=== PATIENT | female | born 1930 | race Caucasian/White ===

== ENCOUNTER 2018-02-14 05:36 | Emergency (ER) | payer MEDICARE, OTHER ==
[~2018-02-14 05:36] MED LIST: ADULT LOW DOSE81 MG PO; ALPRAZOLAM0.25 MG PO; DYAZIDE 25 MG-31 CAP PO; DYAZIDE 37.5-21 EACH PO; GENTAMYCIN PO; LASIX20 M1 PO; NORCO 325 MG-51 TA1 PO; SYNTHROID0.125 MG/T PO; TYLENOL 500MG500 MG PO; XANAX0.5 MG PO; ZOLOFT25 M1 PO; ZOVIRAX 800MG800 M1 PO; [UNRECOGNIZED DRUG - OTHER]
[2018-02-14] MEDS ORDERED: HYDROCHLOROTH12.5 M2 PO (05:52)
[2018-02-14] MEDS ORDERED: ACYCLOVIR800 MG PO (05:53)
[2018-02-14] MEDS ORDERED: LATANOPROST 2.2.5 ML OU (05:53)
[2018-02-14] MEDS ORDERED: STOOL SOFTENER1 TAB PO (05:53)
[2018-02-14] MEDS ORDERED: CRANBERRY200 MG PO (05:54)
[2018-02-14] MEDS ORDERED: VITAMIN C100 M3 PO (05:54)
[2018-02-14] MEDS ORDERED: PREDNISOLONE AC10 ML OP (05:55)
[2018-02-14 06:34] LABS: HEMATOCRIT 46.2 % (37.0-47.0); HEMOGLOBIN 15.2 g/dL (12.5-16.0); MEAN CELL VOLUME 96 fl (78-100); MEAN CORPUSCULAR HEMOGLOBIN 32 pg (27-31); MEAN CORPUSCULAR HGB CONC 33 g/dL (33-37); MEAN PLATELET VOLUME 9.3 fl (7.4-10.4); PLATELET COUNT 460 K/mm3 (130-400); RED BLOOD COUNT 4.81 M/mm3 (4.10-5.30); RED CELL DISTRIBUTION WIDTH 14.9 % (11.5-14.5); WHITE BLOOD COUNT 15.3 K/mm3 (4.8-10.8)
[2018-02-14 06:43] LABS: ALBUMIN 3.7 g/dL (3.5-5.0); BUN/CREATININE RATIO 32.1 (6.0-26.0); CALCIUM 9.6 mg/dL (8.4-10.2); POTASSIUM 3.5 mmol/L (3.6-5.0); TOTAL BILIRUBIN 0.6 mg/dL (0.2-1.3); TOTAL PROTEIN 6.5 g/dL (6.3-8.2)
[2018-02-14 06:45] LABS: BAND 10 % (0-10); LYMPHOCYTE 2 % (20-51); MONOCYTE 6 % (3-10); NEUTROPHILS 82 % (42-75)
[2018-02-14 08:15] LABS: URINE APPEARANCE CLOUDY; URINE BILIRUBIN NEGATIVE (NEGATIVE); URINE BLOOD TRACE (NEGATIVE); URINE COLOR YELLOW; URINE GLUCOSE NEGATIVE (NEGATIVE); URINE KETONE NEGATIVE (NEGATIVE); URINE LEUKOCYTE ESTERASE NEGATIVE (NEGATIVE); URINE NITRATE NEGATIVE (NEGATIVE); URINE PROTEIN(semi-quant) 2+ mg/dL (NEGATIVE); URINE UROBILINOGEN 4 mg/dL (NORMAL); URINE WBC 0-1 /hpf (0-3)
[2018-02-14 13:32] VITALS: BP 116/77
[2018-02-16] MEDS ORDERED: MIRALAX17 GM PO (11:13)
== END 2018-02-14 13:36 | disposition other institution (70) ==
LOC: ED 05:36
PROVIDERS: Nurse Practitioner Family
DX: K56.41 Fecal impaction (principal); R10.32 Left lower quadrant pain; R10.817 Generalized abdominal tenderness; R11.0 Nausea; I10 Essential (primary) hypertension; Z79.82 Long term (current) use of aspirin; Z79.899 Other long term (current) drug therapy
CPT/HCPCS: J1885; J2405; J7120

== ENCOUNTER 2018-02-18 05:53 | Emergency (ER) | payer MEDICARE, OTHER ==
[~2018-02-18 05:53] MED LIST changes: +ACYCLOVIR800 MG PO; +CRANBERRY200 MG PO; +HYDROCHLOROTH12.5 M2 PO; +LATANOPROST 2.2.5 ML OU; +MIRALAX17 GM PO; +PREDNISOLONE AC10 ML OP; +STOOL SOFTENER1 TAB PO; +VITAMIN C100 M3 PO
[2018-02-18 07:19] LABS: HEMATOCRIT 44.3 % (37.0-47.0); HEMOGLOBIN 14.5 g/dL (12.5-16.0); MEAN CELL VOLUME 97 fl (78-100); MEAN CORPUSCULAR HEMOGLOBIN 32 pg (27-31); MEAN CORPUSCULAR HGB CONC 33 g/dL (33-37); MEAN PLATELET VOLUME 9.1 fl (7.4-10.4); PLATELET COUNT 438 K/mm3 (130-400); RED BLOOD COUNT 4.58 M/mm3 (4.10-5.30); RED CELL DISTRIBUTION WIDTH 14.5 % (11.5-14.5)
[2018-02-18 07:36] LABS: ALBUMIN 3.5 g/dL (3.5-5.0); ALT/SGPT 22 U/L (9-52); AST-SGOT 24 U/L (14-36); CALCIUM 9.2 mg/dL (8.4-10.2); CARBON DIOXIDE 31 mmol/L (22-30); GLUCOSE 90 mg/dL (65-105); POTASSIUM 3.8 mmol/L (3.6-5.0); SODIUM 141 mmol/L (137-145); TOTAL BILIRUBIN 0.6 mg/dL (0.2-1.3); TOTAL PROTEIN 6.3 g/dL (6.3-8.2)
[2018-02-18 07:49] LABS: LYMPHOCYTE 11 % (20-51); MONOCYTE 17 % (3-10); NEUTROPHILS 70 % (42-75)
[2018-02-18 08:09] LABS: URINE APPEARANCE CLEAR; URINE BILIRUBIN NEGATIVE (NEGATIVE); URINE BLOOD NEGATIVE (NEGATIVE); URINE COLOR YELLOW; URINE GLUCOSE NEGATIVE (NEGATIVE); URINE KETONE NEGATIVE (NEGATIVE); URINE LEUKOCYTE ESTERASE NEGATIVE (NEGATIVE); URINE NITRATE NEGATIVE (NEGATIVE); URINE PROTEIN(semi-quant) NEGATIVE (NEGATIVE); URINE UROBILINOGEN NORMAL (NORMAL); URINE WBC 0-1 /hpf (0-3)
[2018-02-18 08:12] LABS: CKMB ISOENZYME 0.9 ng/mL (0.6-3.5); TROPONIN-I < 0.03 ng/mL (0.00-0.06)
[2018-02-18 08:50] VITALS: BP 146/89
== END 2018-02-18 08:50 | disposition home or self-care (01) ==
LOC: ED 05:53
PROVIDERS: Nurse Practitioner Primary Care
DX: R10.84 Generalized abdominal pain (principal); R14.3 Flatulence; R14.1 Gas pain; I10 Essential (primary) hypertension; Z79.82 Long term (current) use of aspirin; Z79.899 Other long term (current) drug therapy

== ENCOUNTER 2018-07-16 18:06 | Emergency (ER) | payer MEDICARE, OTHER ==
[2018-07-16] MEDS ORDERED: NORCO 325 MG-51 TA1 PO (20:11)
[2018-07-16 20:24] VITALS: BP 158/90
== END 2018-07-16 20:24 | disposition home or self-care (01) ==
LOC: ED 18:06
DX: R07.81 Pleurodynia (principal); M25.551 Pain in right hip; I10 Essential (primary) hypertension; F41.9 Anxiety disorder, unspecified; Z96.641 Presence of right artificial hip joint; E07.9 Disorder of thyroid, unspecified; Z96.21 Cochlear implant status; Z79.899 Other long term (current) drug therapy

== ENCOUNTER → 2019-04-20 | Outpatient (CLI) | payer MEDICARE, OTHER | LOC: MAMMO 07:07 | DX: N63.11 Unspecified lump in the right breast, upper outer quadrant (principal) ==

== ENCOUNTER → 2019-04-23 | Outpatient (CLI) | payer MEDICARE, OTHER | LOC: RAD 12:36 | DX: N63.11 Unspecified lump in the right breast, upper outer quadrant (principal) | CPT/HCPCS: 15989; 15990; A4648 ==

== ENCOUNTER → 2019-06-04 | Outpatient (CLI) | payer MEDICARE, OTHER | LOC: RAD 07:00 | DX: R60.0 Localized edema (principal); M79.89 Other specified soft tissue disorders ==

== ENCOUNTER 2019-07-26 04:02 | Emergency (ER) | payer MEDICARE, OTHER ==
[~2019-07-26] VITALS: Ht 157.5 cm; Wt 44.4 kg
[2019-07-26 06:38] LABS: HEMATOCRIT 49.5 % (37.0-47.0); HEMOGLOBIN 15.9 g/dL (12.5-16.0); MEAN CELL VOLUME 97 fl (78-100); MEAN CORPUSCULAR HEMOGLOBIN 31 pg (27-31); MEAN CORPUSCULAR HGB CONC 32 g/dL (33-37); PLATELET COUNT 473 K/mm3 (130-400); RED BLOOD COUNT 5.12 M/mm3 (4.10-5.30); RED CELL DISTRIBUTION WIDTH 14.6 % (11.5-14.5); WHITE BLOOD COUNT 6.7 K/mm3 (4.8-10.8)
[2019-07-26 06:47] LABS: ALBUMIN 4.1 g/dL (3.4-4.8)
[2019-07-26 06:49] LABS: CALCIUM 10.1 mg/dL (8.3-10.5)
[2019-07-26 06:50] LABS: GLUCOSE 116 mg/dL (65-105); TOTAL PROTEIN 6.9 g/dL (6.2-8.1)
[2019-07-26 06:51] LABS: CARBON DIOXIDE 27 mmol/L (23-31)
[2019-07-26 06:52] LABS: TOTAL BILIRUBIN 0.6 mg/dL (0.2-1.2)
[2019-07-26 06:55] LABS: AST-SGOT 25 U/L (5-34)
[2019-07-26 06:57] LABS: ALT/SGPT 23 U/L (0-55)
[2019-07-26 07:01] LABS: LYMPHOCYTE 17 % (20-51); MONOCYTE 9 % (3-10); NEUTROPHILS 73 % (42-75)
[2019-07-26 07:05] LABS: TROPONIN-I < 0.03 ng/mL (<0.030)
[2019-07-26 07:28] LABS: SODIUM 140 mmol/L (136-145)
[2019-07-26 09:02] VITALS: BP 127/80
== END 2019-07-26 08:55 | disposition short-term general hospital (02) ==
LOC: ED 04:02
PROVIDERS: Family Medicine
DX: I62.9 Nontraumatic intracranial hemorrhage, unspecified (principal); I10 Essential (primary) hypertension; E03.9 Hypothyroidism, unspecified; F41.9 Anxiety disorder, unspecified; Z96.21 Cochlear implant status; Z96.651 Presence of right artificial knee joint

== ENCOUNTER 2019-07-30 16:42 | Inpatient (IN) | payer MEDICARE, OTHER ==
[~2019-07-30] VITALS: Ht 160 cm; Wt 43.2 kg
[2019-07-30 18:13] VITALS: BP 133/81
[2019-07-30] MEDS ORDERED: ZESTRIL20 M1 PO (18:23)
[2019-07-30] MEDS ORDERED: ATORVASTATIN CA20 MG PO (18:24)
[2019-07-30] MEDS ORDERED: CARVEDILOL6.25 MG PO (18:24)
[2019-07-30 18:25] VITALS: BP 133/81
[2019-07-30] MEDS ORDERED: GOOD NEIGHBOR500 M2 PO (18:25)
[2019-07-30] MEDS ORDERED: MIRALAX17 GM PO (18:26)
[2019-07-30] MEDS ORDERED: LEVOTHYROXIN0.088 MG PO (18:26)
[2019-07-30] MEDS ORDERED: PRESERVISION A1 EAC1 PO (18:28)
[2019-07-31 06:17] LABS: HEMATOCRIT 46.3 % (37.0-47.0); HEMOGLOBIN 15.1 g/dL (12.5-16.0); MEAN CELL VOLUME 97 fl (78-100); MEAN CORPUSCULAR HEMOGLOBIN 32 pg (27-31); MEAN CORPUSCULAR HGB CONC 33 g/dL (33-37); MEAN PLATELET VOLUME 9.1 fl (7.4-10.4); RED CELL DISTRIBUTION WIDTH 14.9 % (11.5-14.5); WHITE BLOOD COUNT 8.1 K/mm3 (4.8-10.8)
[2019-07-31 06:20] VITALS: BP 113/69
[2019-07-31 06:30] LABS: CALCIUM 9.4 mg/dL (8.3-10.5)
[2019-07-31 06:37] LABS: PLATELET COUNT 534 K/mm3 (130-400)
[2019-07-31 07:28] LABS: LYMPHOCYTE 11 % (20-51); MONOCYTE 14 % (3-10); NEUTROPHILS 73 % (42-75)
[2019-07-31 18:00] VITALS: BP 93/59
[2019-08-01 06:11] VITALS: BP 133/75
[2019-08-01 18:21] VITALS: BP 95/60
[2019-08-02 05:35] VITALS: BP 152/89
[2019-08-02 17:22] VITALS: BP 102/54
[2019-08-03 05:52] VITALS: BP 139/77
[2019-08-03 18:15] VITALS: BP 117/65
[2019-08-04 05:23] VITALS: BP 149/84
[2019-08-04 18:17] VITALS: BP 126/74
[2019-08-05 06:18] VITALS: BP 164/88
[2019-08-05 18:54] VITALS: BP 115/72
[2019-08-06 05:54] VITALS: BP 169/89
== END 2019-08-06 17:17 | disposition home health service (06) | DRG 948 ==
LOC: MED/SURG 16:42
PROVIDERS: Nurse Practitioner Family; ADMIT Nurse Practitioner Primary Care
DX: R53.81 Other malaise (principal); B00.52 Herpesviral keratitis; Z86.73 Personal history of transient ischemic attack (TIA), and cerebral infarction without residual deficits; I10 Essential (primary) hypertension; F41.9 Anxiety disorder, unspecified; M54.2 Cervicalgia; G89.29 Other chronic pain

== ENCOUNTER → 2019-08-10 | Outpatient (CLI) | payer MEDICARE, OTHER ==
[2019-08-06 05:54] VITALS: BP 169/89
[~2019-08-10] MED LIST changes: +ATORVASTATIN CA20 MG PO; +CARVEDILOL6.25 MG PO; +GOOD NEIGHBOR500 M2 PO; +LEVOTHYROXIN0.088 MG PO; +PRESERVISION A1 EAC1 PO; +ZESTRIL20 M1 PO
== END ==
LOC: RAD 13:54
DX: G31.9 Degenerative disease of nervous system, unspecified (principal); I62.9 Nontraumatic intracranial hemorrhage, unspecified

== ENCOUNTER → 2019-08-17 | Outpatient (CLI) | payer MEDICARE, OTHER ==
[2019-08-06 05:54] VITALS: BP 169/89
== END ==
LOC: RAD 13:56
DX: E04.1 Nontoxic single thyroid nodule (principal)

== ENCOUNTER 2019-09-01 13:58 | Emergency (ER) | payer MEDICARE, OTHER ==
[~2019-09-01] VITALS: Ht 154.9 cm; Wt 42.7 kg
[2019-09-01] MEDS ORDERED: CRANBERRY500 M3 PO (14:37)
[2019-09-01] MEDS ORDERED: REFRESH TEARS15 ML OP (14:40)
[2019-09-01 15:00] LABS: HEMATOCRIT 50.3 % (37.0-47.0); HEMOGLOBIN 16.1 g/dL (12.5-16.0); MEAN CELL VOLUME 96 fl (78-100); MEAN CORPUSCULAR HEMOGLOBIN 31 pg (27-31); MEAN CORPUSCULAR HGB CONC 32 g/dL (33-37); MEAN PLATELET VOLUME 8.7 fl (7.4-10.4); PLATELET COUNT 426 K/mm3 (130-400); RED BLOOD COUNT 5.23 M/mm3 (4.10-5.30); RED CELL DISTRIBUTION WIDTH 14.9 % (11.5-14.5); WHITE BLOOD COUNT 6.6 K/mm3 (4.8-10.8)
[2019-09-01 15:11] LABS: ALBUMIN 4.2 g/dL (3.4-4.8); POTASSIUM 3.7 mmol/L (3.5-5.1); SODIUM 143 mmol/L (136-145)
[2019-09-01 15:12] LABS: CALCIUM 8.6 mg/dL (8.3-10.5); LYMPHOCYTE 16 % (20-51); MONOCYTE 14 % (3-10); NEUTROPHILS 66 % (42-75)
[2019-09-01 15:13] LABS: GLUCOSE 92 mg/dL (65-105)
[2019-09-01 15:14] LABS: TOTAL PROTEIN 6.8 g/dL (6.2-8.1)
[2019-09-01 15:15] LABS: CARBON DIOXIDE 28 mmol/L (23-31); TOTAL BILIRUBIN 0.5 mg/dL (0.2-1.2)
[2019-09-01 15:19] LABS: AST-SGOT 22 U/L (5-34)
[2019-09-01 15:20] LABS: ALT/SGPT 24 U/L (0-55)
[2019-09-01 15:32] LABS: TROPONIN-I < 0.03 ng/mL (<0.030)
[2019-09-01 16:10] LABS: URINE APPEARANCE CLOUDY; URINE COLOR YELLOW
[2019-09-01 16:11] LABS: URINE BILIRUBIN NEGATIVE (NEGATIVE); URINE BLOOD NEGATIVE (NEGATIVE); URINE GLUCOSE NEGATIVE (NEGATIVE); URINE KETONE NEGATIVE (NEGATIVE); URINE LEUKOCYTE ESTERASE TRACE (NEGATIVE); URINE NITRATE POSITIVE (NEGATIVE); URINE PROTEIN(semi-quant) TRACE mg/dL (NEGATIVE); URINE UROBILINOGEN NORMAL (NORMAL)
[2019-09-01] MEDS ORDERED: MACROBID 100 M100 MG PO (17:24)
[2019-09-01 18:58] VITALS: BP 132/82
== END 2019-09-01 19:04 | disposition home or self-care (01) ==
LOC: ED 13:58
PROVIDERS: Nurse Practitioner Family
DX: I10 Essential (primary) hypertension (principal); N30.00 Acute cystitis without hematuria; E78.5 Hyperlipidemia, unspecified; E03.9 Hypothyroidism, unspecified; F41.9 Anxiety disorder, unspecified; Z86.73 Personal history of transient ischemic attack (TIA), and cerebral infarction without residual deficits; Z96.653 Presence of artificial knee joint, bilateral

== ENCOUNTER → 2020-06-01 | Outpatient (CLI) | payer MEDICARE, OTHER ==
[~2020-06-01] MED LIST changes: +CRANBERRY500 M3 PO; +MACROBID 100 M100 MG PO; +REFRESH TEARS15 ML OP
== END ==
LOC: RAD 11:55
DX: S09.90XA Unspecified injury of head, initial encounter (principal); Z87.820 Personal history of traumatic brain injury